=== PATIENT | male | born 1950 | race Caucasian/White ===

== ENCOUNTER 2019-01-20 20:05 | Emergency (ER) | payer BC, MEDICARE ==
--- NOTE | 2019-01-20 20:47 | ERPHSYRPT ---
- History of Present Illness Time Seen by Provider: 01/20/19 20:39 Source: patient, family Exam Limitations: no limitations Patient Subjective Stated Complaint: pt states he has been dizzy and not been feeling well for several days. states he has been increasingly short of breath tonight Triage Nursing Assessment: pt lert and oriented, anwers questions approp. pt short of brath with exertion. lungs cta. skin warm and dry. face flushed. pt ambulatory with steady gait noted.pupils equal and reactive, bilat upper and lower ext strength equal and wnl. edema noted to bilat lower ext. Physician History: Patient is a 68-year-old male with his complaining of feeling lightheaded and dizzy for a couple days. Sometimes he feels like he can't get a good breath. He's had on and off chest pain worse with breathing. Currently he has no chest pain. He denies nausea, vomiting, or diarrhea. He denies fever. Denies cough. He denies sore throat. He denies muscle aches. When he was leaving his home, he was feeling ill. However, on the drive to the ER, he felt better. He did get an influenza vaccination. His primary medical doctor is the DC in [facility]. His past medical history significant for A. fib, CHF, HTN, high cholesterol, and benign brain tumor. He did not take his hypertensive medicine this morning but did take his evening medicines before arrival. Timing/Duration: day(s) (2), gradual onset, improved Activities at Onset: none Severity of Dyspnea-Max: mild Severity of Dyspnea-Current: mild Possible Cause: occasional episodes Modifying Factors: Improves With: activity Associated Symptoms: edema, dizziness, leg swelling, No wheezing Allergies/Adverse Reactions: No Known Drug Allergies Allergy (Verified 01/20/19 20:28) Home Medications: Spironolactone 25 mg PO DAILY 02/03/13 [History] Amiodarone HCl 200 mg [Cordarone 200 MG] 100 mg PO HS 01/20/19 [History] Apixaban [Eliquis] 5 mg PO BID 01/20/19 [History] Aspirin EC 81 mg [Ecotrin 81 mg] 81 mg PO DAILY 01/20/19 [History] Atorvastatin Calcium [Lipitor] 40 mg PO HS 01/20/19 [History] Fluticasone/Vilanterol [Breo Ellipta 100-25 Mcg INH] 1 each IH DAILY 01/20/19 [ History] Metoprolol Tartrate 50 mg [Lopressor 50 MG] 150 mg PO BID 01/20/19 [ History] Hx Tetanus, Diphtheria Vaccination/Date Given: Yes Hx Influenza Vaccination/Date Given: Yes Hx Pneumococcal Vaccination/Date Given: No Immunizations Up to Date: Yes - Review of Systems Constitutional: No Fever, No Chills Eyes: No Symptoms Ears, Nose, & Throat: No Symptoms Respiratory: Dyspnea, No Cough Cardiac: No Chest Pain, No Edema, No Syncope Abdominal/Gastrointestinal: No Abdominal Pain, No Nausea, No Vomiting, No Diarrhea Genitourinary Symptoms: No Dysuria Musculoskeletal: No Back Pain, No Neck Pain Skin: No Rash Neurological: Dizziness Psychological: No Symptoms Endocrine: No Symptoms Hematologic/Lymphatic: No Symptoms Immunological/Allergic: No Symptoms All Other Systems: Reviewed and Negative - Past Medical History Pertinent Past Medical History: Yes Neurological History: No Pertinent History ENT History: No Pertinent History Cardiac History: No Pertinent History, Arrhythmia, High Cholesterol, Hypertension Respiratory History: No Pertinent History Endocrine Medical History: No Pertinent History Musculoskeletal History: No Pertinent History GI Medical History: No Pertinent History History: No Pertinent History Psycho-Social History: No Pertinent History Male Reproductive Disorders: No Pertinent History Other Medical History: Pt reports a HX. of collapsed lung from a "Bleb" years ago no there HX. reported. hx a fib - Past Surgical History Past Surgical History: Yes Neuro Surgical History: No Pertinent History Cardiac: No Pertinent History Respiratory: No Pertinent History Gastrointestinal: No Pertinent History Genitourinary: No Pertinent History Musculoskeletal: No Pertinent History Male Surgical History: No Pertinent History Other Surgical History: 1970 - sinus popyp removed, t&a as child. brain tumor removed approx 1.5 yrs ago - Social History Smoking Status: Former smoker Exposure to second hand smoke: Yes Drug Use: none Patient Lives Alone: No - Nursing Vital Signs Nursing Vital Signs: Initial Vital Signs Pulse Rate 96 H 01/20/19 20:14 Respiratory Rate 22 01/20/19 20:14 Blood Pressure 194/99 01/20/19 20:14 O2 Sat by Pulse Oximetry 96 01/20/19 20:14 Pain Scale Pain Intensity 0 - Physical Exam General Appearance: no apparent distress, alert Eye Exam: PERRL/EOMI Neck Exam: normal inspection, supple Respiratory Exam: normal breath sounds Cardiovascular/Chest Exam: normal heart sounds, regular rate/rhythm Abdominal/Gastrointestinal Exam: soft, No tenderness, No distention, No mass Rectal Exam: not done Extremity Exam: pedal edema (2+) Neurologic Exam: alert, oriented x 3, cooperative, hand zipper trimmer II-XII nml as tested, sensation nml, No motor deficits Skin Exam: normal color, warm, No dry SpO2 Interpretation: normal SpO2: 96 O2 Delivery: Room Air - Course EKG Interpreted by Me: RATE, Sinus Rhythm, NORMAL AXIS, NORMAL INTERVALS, Right Bundle Branch Block, NORMAL ST-T, Other (comp EKG from 05/14/12. ) - Radiology Exams Chest X-ray Interpretation: Interpreted by me, Negative (2V chest, comp 1V chest .) - CT Exams Head CT Interpretation: Tele-radiologist Report (per Dr Rodas), Other (parietal craniotomy, otherwise neg) Ordered Tests: Active Orders 24 hr Category Date Time Status Project Control Analyst STAT Care 01/20/19 20:54 Active Clean Catch Urine Specimen STAT Care 01/20/19 20:53 Active EKG-ER Only STAT Care 01/20/19 20:53 Active IV Insertion STAT Care 01/20/19 20:53 Active Pulse Oximetry (ED) STAT Care 01/20/19 20:53 Active CHEST 2 VIEWS (PA AND LAT) Stat Exams 01/20/19 20:54 Taken HEAD WITHOUT CONTRAST [CT] Stat Exams 01/20/19 20:55 Taken CBC W DIFF Stat Lab 01/20/19 20:50 Completed CMP Stat Lab 01/20/19 20:50 Completed D-DIMER QUANTITATION Stat Lab 01/20/19 20:50 Completed Lactic Acid Stat Lab 01/20/19 20:53 Results NT PRO BNP Stat Lab 01/20/19 20:50 Completed TROPONIN Q3H Lab 01/20/19 20:50 Completed TROPONIN Q3H Lab 01/21/19 00:00 Ordered TROPONIN Q3H Lab 01/21/19 03:00 Ordered TROPONIN Q3H Lab 01/21/19 06:00 Ordered TROPONIN Q3H Lab 01/21/19 09:00 Ordered UA W/RFX UR CULTURE Stat Lab 01/20/19 20:50 Completed Medication Summary Generic Name Dose Route Start Last Admin Trade Name Louie PRN Reason Stop Dose Admin Sodium Chloride 1,000 mls @ 999 mls/hr 01/20/19 21:48 01/20/19 21:54 Sodium Chloride 0.9% 1000 Ml IV 01/20/19 22:48 999 mls/hr .Q1H1M STA Administration Discontinued Medications Generic Name Dose Route Start Last Admin Trade Name Louie PRN Reason Stop Dose Admin Sodium Chloride Confirm 01/20/19 21:51 Sodium Chloride 0.9% 1000 Ml Administered 01/20/19 21:52 Dose 1,000 mls @ ud .ROUTE .STK-MED ONE Lab/Rad Data: Laboratory Result Diagrams 01/20/19 20:50 01/20/19 20:50 Laboratory Results 01/20/19 01/20/19 01/20/19 Range/Units 21:55 20:53 20:50 WBC (4.0-10.5) K/mm3 RBC (4.1-5.6) M/mm3 Hgb (12.5-18.0) gm/dl Hct (42-50) % MCV (78-100) fl MCH (26-32) pg MCHC (32-36) g/dl RDW (11.5-14.0) % Plt Count (150-450) K/mm3 MPV (6-9.5) fl Gran % (36.0-66.0) % Eos # (Auto) (0-0.5) Absolute Lymphs (auto) (1.0-4.6) Absolute Monos (auto) (0.0-1.3) Lymphocytes % (24.0-44.0) % Monocytes % (0.0-12.0) % Eosinophils % (0.00-5.0) % Basophils % (0.0-0.4) % Absolute Granulocytes (1.4-6.9) Basophils # (0-0.4) D-Dimer (215-500) ng/mL Sodium (137-145) mmol/L Potassium (3.5-5.1) mmol/L Chloride (98-107) mmol/L Carbon Dioxide (22-30) mmol/L Anion Gap (5-15) MEQ/L BUN (9-20) mg/dL Creatinine (0.66-1.25) mg/dL Estimated GFR ML/MIN Glucose (74-106) mg/dL Lactic Acid 2.2 H (0.4-2.0) Calcium (8.4-10.2) mg/dL Total Bilirubin (0.2-1.3) mg/dL AST (17-59) U/L ALT (0-50) U/L Alkaline Phosphatase (38-126) U/L Troponin I (0.000-0.034) ng/mL NT-Pro-B Natriuret Pep (0-900) pg/mL Serum Total Protein (6.3-8.2) g/dL Albumin (3.5-5.0) g/dL Urine Color YELLOW (YELLOW) Urine Appearance CLEAR (CLEAR) Urine pH 5.0 (5-6) Ur Specific [place] 1.020 (1.005-1.025) Urine Protein NEGATIVE (Negative) Urine Ketones NEGATIVE (NEGATIVE) Urine Blood NEGATIVE (0-5) Qu[place]/ul Urine Nitrite NEGATIVE (NEGATIVE) Urine Bilirubin NEGATIVE (NEGATIVE) Urine Urobilinogen NORMAL (0-1) mg/dL Ur Leukocyte Esterase NEGATIVE (NEGATIVE) Urine WBC (Auto) 0-2 (0-5) /HPF Urine RBC (Auto) NONE SEEN (0-2) /HPF U Epithel Cells (Auto) RARE (FEW) /HPF Urine Bacteria (Auto) RARE (NEGATIVE) /HPF Urine Culture Reflexed NO (NO) Urine Glucose NEGATIVE (NEGATIVE) mg/dL Influenza Type A Ag NEGATIVE (NEGATIVE) Influenza Type B Ag NEGATIVE (NEGATIVE) RSV (PCR) NEGATIVE (Negative) 01/20/19 01/20/19 01/20/19 Range/Units 20:50 20:50 20:50 WBC (4.0-10.5) K/mm3 RBC (4.1-5.6) M/mm3 Hgb (12.5-18.0) gm/dl Hct (42-50) % MCV (78-100) fl MCH (26-32) pg MCHC (32-36) g/dl RDW (11.5-14.0) % Plt Count (150-450) K/mm3 MPV (6-9.5) fl Gran % (36.0-66.0) % Eos # (Auto) (0-0.5) Absolute Lymphs (auto) (1.0-4.6) Absolute Monos (auto) (0.0-1.3) Lymphocytes % (24.0-44.0) % Monocytes % (0.0-12.0) % Eosinophils % (0.00-5.0) % Basophils % (0.0-0.4) % Absolute Granulocytes (1.4-6.9) Basophils # (0-0.4) D-Dimer < 215 L (215-500) ng/mL Sodium 138 (137-145) mmol/L Potassium 3.7 (3.5-5.1) mmol/L Chloride 101 (98-107) mmol/L Carbon Dioxide 25 (22-30) mmol/L Anion Gap 14.9 (5-15) MEQ/L BUN 21 H (9-20) mg/dL Creatinine 0.99 (0.66-1.25) mg/dL Estimated GFR > 60.0 ML/MIN Glucose 118 H (74-106) mg/dL Lactic Acid (0.4-2.0) Calcium 9.4 (8.4-10.2) mg/dL Total Bilirubin 0.60 (0.2-1.3) mg/dL AST 31 (17-59) U/L ALT 36 (0-50) U/L Alkaline Phosphatase 70 (38-126) U/L Troponin I < 0.012 (0.000-0.034) ng/mL NT-Pro-B Natriuret Pep 71.0 (0-900) pg/mL Serum Total Protein 7.7 (6.3-8.2) g/dL Albumin 4.7 (3.5-5.0) g/dL Urine Color (YELLOW) Urine Appearance (CLEAR) Urine pH (5-6) Ur Specific [place]lyn (1.005-1.025) Urine Protein (Negative) Urine Ketones (NEGATIVE) Urine Blood (0-5) Qu[place]/ul Urine Nitrite (NEGATIVE) Urine Bilirubin (NEGATIVE) Urine Urobilinogen (0-1) mg/dL Ur Leukocyte Esterase (NEGATIVE) Urine WBC (Auto) (0-5) /HPF Urine RBC (Auto) (0-2) /HPF U Epithel Cells (Auto) (FEW) /HPF Urine Bacteria (Auto) (NEGATIVE) /HPF Urine Culture Reflexed (NO) Urine Glucose (NEGATIVE) mg/dL Influenza Type A Ag (NEGATIVE) Influenza Type B Ag (NEGATIVE) RSV (PCR) (Negative) 01/20/19 Range/Units 20:50 WBC 8.7 (4.0-10.5) K/mm3 RBC 4.79 (4.1-5.6) M/mm3 Hgb 15.4 (12.5-18.0) gm/dl Hct 47.1 (42-50) % MCV 98.3 (78-100) fl MCH 32.2 H (26-32) pg MCHC 32.7 (32-36) g/dl RDW 12.9 (11.5-14.0) % Plt Count 237 (150-450) K/mm3 MPV 11.4 H (6-9.5) fl Gran % 74.0 H (36.0-66.0) % Eos # (Auto) 0.16 (0-0.5) Absolute Lymphs (auto) 1.47 (1.0-4.6) Absolute Monos (auto) 0.59 (0.0-1.3) Lymphocytes % 16.9 L (24.0-44.0) % Monocytes % 6.8 (0.0-12.0) % Eosinophils % 1.8 (0.00-5.0) % Basophils % 0.5 (0.0-0.4) % Absolute Granulocytes 6.45 (1.4-6.9) Basophils # 0.04 (0-0.4) D-Dimer (215-500) ng/mL Sodium (137-145) mmol/L Potassium (3.5-5.1) mmol/L Chloride (98-107) mmol/L Carbon Dioxide (22-30) mmol/L Anion Gap (5-15) MEQ/L BUN (9-20) mg/dL Creatinine (0.66-1.25) mg/dL Estimated GFR ML/MIN Glucose (74-106) mg/dL Lactic Acid (0.4-2.0) Calcium (8.4-10.2) mg/dL Total Bilirubin (0.2-1.3) mg/dL AST (17-59) U/L ALT (0-50) U/L Alkaline Phosphatase (38-126) U/L Troponin I (0.000-0.034) ng/mL NT-Pro-B Natriuret Pep (0-900) pg/mL Serum Total Protein (6.3-8.2) g/dL Albumin (3.5-5.0) g/dL Urine Color (YELLOW) Urine Appearance (CLEAR) Urine pH (5-6) Ur Specific [place] (1.005-1.025) Urine Protein (Negative) Urine Ketones (NEGATIVE) Urine Blood (0-5) Qu[place]/ul Urine Nitrite (NEGATIVE) Urine Bilirubin (NEGATIVE) Urine Urobilinogen (0-1) mg/dL Ur Leukocyte Esterase (NEGATIVE) Urine WBC (Auto) (0-5) /HPF Urine RBC (Auto) (0-2) /HPF U Epithel Cells (Auto) (FEW) /HPF Urine Bacteria (Auto) (NEGATIVE) /HPF Urine Culture Reflexed (NO) Urine Glucose (NEGATIVE) mg/dL Influenza Type A Ag (NEGATIVE) Influenza Type B Ag (NEGATIVE) RSV (PCR) (Negative) - Progress Progress: improved Air Movement: good Blood Culture(s) Obtained: No Antibiotics given: No Counseled pt/family regarding: drug and/or alcohol abuse, lab results, diagnosis , need for follow-up - Departure Time of Disposition: 22:41 Departure Disposition: Home Clinical Impression: Lightheadedness Condition: Stable Critical Care Time: No Referrals: MONICA GROVES MD [Primary Care Provider] - Additional Instructions: You had an episode of lightheadedness. Your chest x-ray was normal. Your lab work was normal. You did not have an influenza infection. You were given fluids in the ER. Follow-up with your primary medical doctor in one to 2 days.
[2019-01-20 21:15] LABS: BASOPHIL % 0.5 % (0.0-0.4); Basophil (Absolute #) 0.04 (0-0.4); Eosinophil % 1.8 % (0.00-5.0); Eosinophil (Absolute #) 0.16 (0-0.5); Granulocyte Absolute (ANC) 6.45 (1.4-6.9); Hematocrit 47.1 % (42-50); Hemoglobin 15.4 gm/dl (12.5-18.0); Lymphocyte (Absolute #) 1.47 (1.0-4.6); Lymphocytes % 16.9 % (24.0-44.0); Mean Cell Volume 98.3 fl (78-100); Mean Corpuscular Hemoglobin 32.2 pg (26-32); Mean Corpuscular Hgb Concent. 32.7 g/dl (32-36); Mean Platelet Volume 11.4 fl (6-9.5); Monocyte (Absolute #) 0.59 (0.0-1.3); Monocytes % 6.8 % (0.0-12.0); Platelet Count 237 K/mm3 (150-450); Red Blood Count 4.79 M/mm3 (4.1-5.6); Red Cell Distribution Width 12.9 % (11.5-14.0); White Blood Count 8.7 K/mm3 (4.0-10.5)
[2019-01-20 21:30] LABS: ALBUMIN 4.7 g/dL (3.5-5.0); ALKALINE PHOSPHATASE 70 U/L (38-126); ANION GAP 14.9 MEQ/L (5-15); BLOOD UREA NITROGEN 21 mg/dL (9-20); CHLORIDE 101 mmol/L (98-107); Calcium 9.4 mg/dL (8.4-10.2); Carbon Dioxide 25 mmol/L (22-30); Creatinine 1 0.99 mg/dL (0.66-1.25); Glucose 118 mg/dL (74-106); Potassium 3.7 mmol/L (3.5-5.1); SGOT/AST 31 U/L (17-59); SGPT/ALT 36 U/L (0-50); SODIUM 138 mmol/L (137-145); Total Protein 7.7 g/dL (6.3-8.2)
[2019-01-20 21:39] LABS: Appearance CLEAR (CLEAR); Leukocyte Esterase NEGATIVE (NEGATIVE); Nitrite NEGATIVE (NEGATIVE); Protein,Urine Dip NEGATIVE (Negative)
[2019-01-20 21:40] LABS: Bilirubin NEGATIVE (NEGATIVE); Blood NEGATIVE Ery/ul (0-5); Glucose NEGATIVE (NEGATIVE); Ketones NEGATIVE (NEGATIVE); Urobilinogen NORMAL mg/dL (0-1)
[2019-01-20 21:41] LABS: Bacteria RARE /HPF (NEGATIVE); Epithelial Cells RARE /HPF (FEW); RBC NONE SEEN /HPF (0-2); WBC 0-2 /HPF (0-5)
[2019-01-20 21:43] LABS: Lactic Acid 2.2 (0.4-2.0)
[2019-01-20] MEDS ORDERED: Sodium Chloride 0.9% 1000 ML 1,000 ML IV STA (21:48)
[2019-01-20] MEDS ORDERED: Sodium Chloride 0.9% 1000 ML 1,000 ML ONE (21:51)
[2019-01-20 21:52] VITALS: O2SAT 96
[2019-01-20 22:34] LABS: INFLUENZA A NEGATIVE (NEGATIVE); INFLUENZA B NEGATIVE (NEGATIVE); RESPIRATORY SYNCTIAL VIRUS NEGATIVE (Negative)
[2019-01-20 22:46] VITALS: BP 119/73; PULSE 75
--- NOTE | 2019-01-21 09:03 | XRAY ---
Indication: Short of breath. Comparison: May 14, 2012. AP/lateral chest remains hyperinflated. No focal infiltrate, consolidation, or large effusion. Heart is not enlarged for AP technique. Bony thorax intact again with mild osteopenia and degenerative changes. Impression: Stable nonacute hyperinflated chest.
--- NOTE | 2019-01-21 09:06 | XRAY ---
Indication: Dizziness. No known injury. History of brain tumor. Multiple contiguous axial images obtained through the head without contrast. Comparison: June 04, 2011. There has been interval right posterior parietal craniotomy near the vertex with underlying encephalomalacia. No acute intracranial hemorrhage, hydrocephalus, or mass effect. Crawford-white matter differentiation preserved. Remaining bony calvarium intact. Visualized paranasal sinuses and mastoid air cells are clear. Impression: 1. Right posterior parietal craniotomy with underlying encephalomalacia. 2. No acute intracranial abnormalities. CT DI 90.48
== END 2019-01-20 22:51 | disposition home or self-care (01) ==
LOC: ED 20:05
DX: R42 Dizziness and giddiness (principal); I10 Essential (primary) hypertension; E78.00 Pure hypercholesterolemia, unspecified; Z79.899 Other long term (current) drug therapy
CPT/HCPCS: 36000; 36415; 70450; 71046; 80053; 81001; 83605; 83880; 84484; 85025; 85379; 87631; 93005; 93041; 96360; 99284